=== PATIENT | female | born 1975 | race Caucasian/White ===

== ENCOUNTER 2018-04-23 14:53 | Emergency (ER) | payer MEDICAID ==
[2018-04-23 15:06] VITALS: BP 106/83; Ht 149.9 cm
== END 2018-04-23 17:17 | disposition home or self-care (01) ==
LOC: ED 14:53
DX: J06.9 Acute upper respiratory infection, unspecified (principal); H92.02 Otalgia, left ear; F17.210 Nicotine dependence, cigarettes, uncomplicated; F41.9 Anxiety disorder, unspecified; F32.9 Major depressive disorder, single episode, unspecified; Z88.1 Allergy status to other antibiotic agents
CPT/HCPCS: J1885; Q0092